=== PATIENT | male | born 1955 | race Caucasian/White ===

== ENCOUNTER 2023-12-25 08:38 | Emergency (ER) | payer MEDICARE, OTHER, SELFPAY ==
[2023-12-25 08:40] VITALS: BP 152/94
--- NOTE | 2023-12-25 09:43 | ED.GENMED ---
History of Present Illness
General
Chief Complaint: Dizziness
Source: patient
Time Seen by Provider: 12/25/23 09:24
History of Present Illness
History of Present Illness:
67-year-old male presents to the emergency room complaining of dizziness. Patient states that he feels a sense of movement like the room is spinning. The began when he got up from bed around 5 AM. Symptoms are worse with head movement. Symptoms
settle down when he stays perfectly still. Had similar episode a few days ago. Patient that might be due to pregabapentin that he was prescribed for back pain. No other complaints. No nausea vomiting or diarrhea. No headache. No focal weakness
numbness or tingling.
Past History
Past History
ED Past Medical History: HTN and Hypercholesterolemia
ED Past Surgical History: Other
Social History
Tobacco: Non-smoker
Alcohol: Other
Drug: None
Personal:
Living: with family
Employment: Other
Family History
Family History: Other
Phy Exam
Physical Exam
Physical Exam:
General: Awake, Alert, Oriented X3. No acute distress.
Vitals: unremarkable
Head: Atraumatic
Eyes: Pupils equal, EOMI, positive nystagmus which is horizontal
Throat: Airway intact, no exudates
Neck: Trachea midline
Lungs: Clear and equal b/l
Heart: Regular rate, no murmurs
Abd: Soft, Nontender, No pulsatile mass
Neuro: Cranial nerves intact, muscle strength equal bilaterally, cerebellar exam normal
Skin: Warm, dry, no rash
Extremities: pulses equal b/l, no edema
Course
Orders/Labs/Results
Orders:
Orders
12/25/23 08:42
Electrocardiogram (*1) Urgent
Reason for Study: Vertigo / Dizzy
EKG- Treatment ONCE
12/25/23 09:38
Meclizine [Antivert] 25 mg PO NOW STA
12/25/23 09:54
Basic Metabolic Panel Urgent
Complete Blood Count/With Diff Urgent
Abnormal Lab Results
12/25/23
09:54
BUN 21 H mg/dl
(9-20)
Glucose 106 H mg/dl
(70-99)
12/25/23 09:54
12/25/23 09:54
Vital Signs
Initial and Last Documented VS:
Initial Vital Signs
Temp Pulse Resp BP Pulse Ox
97.9 F 69 18 152/94 98
12/25/23 08:40 12/25/23 08:40 12/25/23 08:40 12/25/23 08:40 12/25/23 08:40
Last Documented Vital Signs
Temp Pulse Resp BP Pulse Ox
97.9 F 59 19 161/93 97
12/25/23 08:40 12/25/23 10:30 12/25/23 10:30 12/25/23 10:00 12/25/23 10:30
MDM/Problems Addressed
Differential Diagnosis Includes:
BPPV, labyrinthitis, CVA (doubt)
MDM/Problems Addressed:
Patient presents with symptoms type symptoms. He has a normal neurologic exam. He has normal labs. Patient felt somewhat better after meclizine. He is able to ambulate without any assistance. He has no ataxia in his gait. Patient stable for
discharge home with peripheral vertigo. Suspect BPPV. Follow-up with physical therapy. He had an appointment at 9 AM with physical therapy for the symptoms but wanted to get checked out to make sure nothing else more serious was going on.
Chronic conditions affecting care: HTN
*Pulse Oximetry
Patient hypoxic: no
*EKG
Interpreted by ED Provider?: Yes
Heart Rate: 62
Rate: normal
Rhythm: sinus
[place]: normal axis
Interval: normal interval
QRS Pattern: normal QRS
Ischemia: no ischemia
*Ground Services Instructor Interpretation
Rate: normal
Interpretation: normal
Rhythm: sinus
*Critical Care Note
Total Time (30-74mins, 75-104mins- exclusive of procedures): Not Applicable
ED Attending Note
-
Portions of this chart may have been created with voice recognition software.� Occasional wrong word or��sound alike� substitutions may have occurred due to the inherent limitations of voice recognition software.
Discharge Plan
Departure
Patient Disposition: Home (Routine Discharge)
Date of Disposition: 12/25/23
Time of Disposition: 12:34
Patient with high blood pressure during this ER visit?: Yes
Condition: Good
Discharge Problem:
Vertigo, Benign paroxysmal positional vertigo
Instructions: Vertigo (a Type of Dizziness) (DC)
Prescriptions:
No Action
atorvastatin 10 mg tablet
10 mg PO HS
terazosin 1 mg capsule
1 mg PO BID
gabapentin 300 mg capsule
300 mg PO HS
losartan 50 mg Tablet
50 mg PO DAILY Qty: 30 1RF
Referrals:
FREDY LYNN CRNP [Family Provider] -
Activity Restrictions/Additional Instructions:
You can take meclizine 25mg every 8 hours to help with the vertigo. You should follow up with the physical therapist you have seen in the past for vertigo. Do not take the meclizine within 8 hours of your physical therapy appointment.
Interventions
Interventions:
*Risk Screen - Suicide Last Done: 12/25/23 08:40
*General Assessment Last Done: 12/25/23 08:40
*Neglect/Abuse Screening Last Done: 12/25/23 08:40
ED- Fall Risk Assessment Last Done: 12/25/23 09:51
*ED COVID-19 Vaccine History Last Done: 12/25/23 08:40
*Nursing Disposition Last Done: 12/25/23 12:53
ED- Neurological Assessment Last Done: 12/25/23 09:51
ED- Cardiac Assessment Last Done: 12/25/23 09:51
ED Swallowing Screen Last Done: 12/25/23 09:53
Discharge Date and Time
Discharge Date/Time: 12/25/23 12:53
Print Language: FRISIAN
[2023-12-25] MEDS: ANTIVERT 25 MG PO (09:44)
[2023-12-25 09:50] VITALS: BP 147/98
[2023-12-25 09:51] VITALS: BMI 32.3
[2023-12-25 10:00] VITALS: BP 161/93
[2023-12-25 10:15] LABS: % Basophils 0.4 % (0-2); % Eosinophils 1.3 % (0-6); % Immature Granulocytes 0.2 % (0-0.5); % Lymphocytes 22.5 % (20.5-51.1); % Monocytes 8.7 % (1.7-9.3); % Neutrophils 66.9 % (42.2-75.2); Absolute Eosinophils 0.1 10^3/uL (0-0.7); Absolute Lymphocytes 1.2 10^3/uL (1.2-3.4); Absolute Monocytes 0.5 10^3/uL (0.1-0.6); Absolute Neutrophils 3.7 10^3/uL (1.4-6.5); Hematocrit 44.9 % (39.0-52.0); Hemoglobin 15.5 g/dL (13.0-18.0); Mean Corp Hgb Conc. 34.5 g/dL (33.0-37.0); Mean Corpuscular Hgb 30.5 pg (27.0-31.0); Mean Corpuscular Volume 88.4 fL (80.0-94.0); Mean Platelet Volume 9.4 fL (7.4-10.4); Nucleated Red Blood Cells % 0 % (-); Platelet Count 142 10^3/uL (130-400); Red Blood Cell Count 5.08 10^6/uL (4.70-6.10); Red Cell Dist. Width 12.6 % (11.5-14.5); White Blood Cell Count 5.5 10^3/uL (4.8-10.8)
[2023-12-25 10:25] LABS: Blood Urea Nitrogen 21 mg/dl (9-20); Calcium 9.4 mg/dl (8.4-10.2); Carbon Dioxide 30 mmol/L (22-30); Chloride 104 mmol/L (98-107); Estimated Creatinine Clearance 104 ml/min; Glucose 106 mg/dl (70-99); Potassium 5.1 mmol/L (3.5-5.1); Sodium 142 mmol/L (135-145); eGFR > 60.00
== END 2023-12-25 12:53 | disposition home or self-care (01) ==
LOC: EMR 08:38
PROVIDERS: EMERGENCY PHYSICIAN Emergency Medicine; FAMILY PHYSICIAN Nurse Practitioner Gerontology
DX: H81.10 Benign paroxysmal vertigo, unspecified ear (principal); I10 Essential (primary) hypertension; E78.00 Pure hypercholesterolemia, unspecified
CPT/HCPCS: 99283; 80048; 85025; 93005